=== PATIENT | female | born 1995 | race Caucasian/White ===

== ENCOUNTER 2019-11-16 12:54 | Emergency (ER) | payer OTHER, SELFPAY ==
--- NOTE | ~2019-11-16 | XR_ITS ---
XR foot LT min 3V DATE: 11/16/2019 13:14 INDICATION: Struck foot on height chair. Pain and bruising of fifth metatarsal and toe TECHNIQUE: 4 views COMPARISON: None FINDINGS: There is a linear oblique fracture of the shaft of the proximal phalanx of the fifth toe wi th up to 1.2 mm medial displacement, minimal apex medial angulation. No other fracture or dislocation, periosteal reaction or bone destruction. IMPRESSION: Up to 1.2 mm medially displaced fracture of the proximal phalanx of the fifth digit Reviewed, dictated and finalized at location B.
[2019-11-16 13:03] VITALS: BP 143/62; PULSE 87; RESP 20; TEMP 36.2; O2SAT 100
--- NOTE | 2019-11-16 13:13 | ED.LOWEXIN ---
HPI - Extremity Injury (Lower) General Chief Complaint: Extremity Injury, Lower Stated Complaint: INJURED TOE Time Seen by Provider: 11/16/19 13:09 Source: patient and RN notes reviewed History of Present Illness HPI Narrative: Patient is a 24-year-old female who presents the urgent care with complaints of left foot pain and bruising. Patient states that she ran her foot into a highchair Friday while at home. States that she has been elevating the foot and using ice. 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 Patient has not used anything [id number] for her pain. No other acute complaints. No acute distress noted. Patient aware of the plan of care. Related Data Home Medications Medication Instructions Recorded Confirmed No Home Medications 11/16/19 11/16/19 Allergies Allergy/AdvReac Type Severity Reaction Status Date / Time No Known Allergies Allergy Verified 11/16/19 12:56 Review of Systems Review of Systems: Narrative: CONSTITUTIONAL: Denies fever, chills, or sweats. EYES: Denies visual changes, redness, or discharge. ENT: Denies rhinorrhea, congestion, sore throat, or otalgia. CARDIOVASCULAR: Denies chest pain, palpitations, or edema. RESPIRATORY: Denies cough or dyspnea. GASTROINTESTINAL: Denies abdominal pain, nausea, vomiting, or diarrhea. GENITOURINARY: Denies dysuria or hematuria. SKIN: Denies rash or itching. MUSCULOSKELETAL: Reports of left foot pain with bruising and swelling NEUROLOGIC: Denies headache, numbness, or weakness. All other systems reviewed are negative, except as documented in HPI. [facility] Family History Family History (Updated 03/31/19 @ 12:23 by Kandace Brown RN) Other Unknown family medical history Social History Social History Smoking status: Never smoker Second hand tobacco smoke exposure: No Gender identity (if verbalized by the patient): Female Spiritual care concerns: No Comments At the time of my signature, I reviewed and agree with the nursing past medical, surgical, social, and family history. There is no relevant family history pertinent to the patient complaint. Exam Narrative: Exam Narrative: GENERAL: This is a well-nourished, well-developed patient, in no apparent distress. HEAD: normocephalic, atraumatic. EYES: PERRL. Sclera clear/white. Vision is grossly intact. EARS: External ears normal NOSE: External nose normal with no obvious nasal discharge, nares without redness, no rhinorrhea. THROAT: Mucous membranes moist NECK: Neck supple SKIN: warm, intact with no suspicious lesions or rash, good texture and turgor. NEURO: awake, alert, and oriented to person, place and time. There were no obvious focal neurologic abnormalities. EXTREMITIES: Moderate ecchymosis noted to the lateral aspect of the left foot, more notable to the fifth digit with tenderness. Positive strong left pedal pulse with capillary refill less than 2 seconds. Course Vital Signs Vital signs: Vital Signs Temperature 97.2 F L 11/16/19 13:03 Pulse Rate 87 11/16/19 13:03 Respiratory Rate 20 11/16/19 13:03 Blood Pressure 143/62 H 11/16/19 13:03 Pulse Oximetry 100 11/16/19 13:03 Temperature 97.2 F L 11/16/19 13:03 Pulse Rate 87 11/16/19 13:03 Respiratory Rate 20 11/16/19 13:03 Blood Pressure 143/62 H 11/16/19 13:03 Pulse Oximetry 100 11/16/19 13:03 Reviewed?patient is informed that they may have pre-hypertension or hypertension based on a blood pressure reading in the department. I recommend the patient call the primary care provider listed on their discharge instructions or a physician of their choice this week to arrange follow-up for further evaluation of possible pre-hypertension or hypertension. MDM - Extremity Injury (Lower) MDM Narrative Medical decision making narrative: Reviewed x-ray results with the patient. She is aware the x-ray shows displaced fracture of the
== END 2019-11-16 13:39 | disposition home or self-care (01) ==
PROVIDERS: Emergency Provider Nurse Practitioner Family
DX: S92.502A Displaced unspecified fracture of left lesser toe(s), initial encounter for closed fracture (principal); W22.03XA Walked into furniture, initial encounter; Y92.009 Unspecified place in unspecified non-institutional (private) residence as the place of occurrence of the external cause
CPT/HCPCS: 73630; 99214; G0463

== ENCOUNTER 2022-07-26 05:42 | Observation (INO) | payer OTHER, SELFPAY ==
[2022-07-26] VITALS (9 sets, daily range): BP systolic 115–131; BP diastolic 72–80; PULSE 74–85; BMI 37.0
--- NOTE | 2022-07-26 06:44 | LDADM ---
This patient, Lorena Basilio, was admitted to [facility] on 07/26/22 at 05:42. Plans for labor, pain management and were discussed with patient. Patient/family oriented to hospital policies and general routines including ID bracelet, bed and alarms, visiting hours, pain management, procedures, bathroom and other care routines, personal items, smoking policy, room service/diet and guest tray routines, security routines, and visiting hours. Patient/Family are encouraged to report perceived risks to care and to ask questions if they do not understand what they are told or what they should do. See OBIX for further documentation.
[2022-07-26 07:32] LABS: Appearance Urine Clear (Clear); Bacteria Urine 1+ /hpf; Bilirubin Urine Negative (Negative); Blood Urine 3+ (Negative); Color Urine Yellow (Yellow); Glucose Urine UA Negative (Negative); Ketones Urine Negative (Negative); Leukocyte Esterase Ur 3+ LEU/UL (Negative); Nitrate Urine Negative (Negative); Non Pathogenic Casts 0-2; Protein Urine Negative (Negative); RBC Urine 0-2 /hpf (0-2); Specific Grav Ur 1.007 (1.001-1.035); Squamous Epithelial Cell Urine Occasional /hpf (Few); Urobilinogen Urine 0.2 mg/dL (<2.0); WBC Urine 51-100 /hpf
[2022-07-26 07:41] LABS: Add Urine Microscopic? YES
--- NOTE | 2022-07-26 07:51 | PC.NURSE ---
Patient admitted with complaints of intermittent lower back and abdominal cramping that she rates a 4/10 on the pain scale. UA sent and patient placed on monitors. Category I tracing noted with occasional contractions. Spoke with Laura Patrick CNM on unit. CNM reviewed tracing and labs. Orders placed for 1gm IV Rocephin, 1L LR, 1gm PO Tylenol, and a dose of IM betamethasone. Patient to be discharged after treatment with prescription for 100 mg Macrobid [id number]. Patient verbalizes understanding and has no questions at this time.
[2022-07-26] MEDS: LACTATED RINGERS 1,000 ML 999 ML IV CONT (08:35)
[2022-07-26] MEDS: ACETAMINOPHEN 500 MG TABLET 1000 MG PO (08:44)
[2022-07-26] MEDS: BETAMETHASONE SOD PHOS/ACETATE 30 MG/5 ML VIAL 12 MG IM (09:04)
--- NOTE | 2022-07-29 15:30 | P.PNOB_ITS ---
OB - Triage/Final Diagnosis Visit Information Date of evaluation: 07/26/22 Reason for evaluation: threatened labor Comments/Additional reasons for admission: I have assessed the risk for this patient, Lorena Wellington Basilio, and determined that she would benefit from observation care. Evaluation Laboratory results: Laboratory Tests 07/26/22 06:21 Urine Color Yellow Urine Appearance Clear Urine pH 7.0 Ur Specific [place] 1.007 Urine Protein Negative Urine Glucose (UA) Negative Urine Ketones Negative Ur Blood (Man) 3+ H Urine Nitrate Negative Urine Bilirubin Negative Urine Urobilinogen 0.2 Leukocyte Esterase Rfl 3+ H Urine RBC 0-2 Urine WBC 51-100 H Ur Squamous Epith Cells Occasional Urine Bacteria 1+ H Urine Casts 0-2
== END 2022-07-26 10:02 | disposition home or self-care (01) ==
PROVIDERS: Advanced Practice Midwife; Admitting Provider Obstetrics & Gynecology; Visit Provider Obstetrics & Gynecology
DX: O47.03 False labor before 37 completed weeks of gestation, third trimester (principal); O26.893 Other specified pregnancy related conditions, third trimester; R10.9 Unspecified abdominal pain; Z3A.35 35 weeks gestation of pregnancy
CPT/HCPCS: 81001; 87077; 87086; 87088; 87186; 96361; 96365; A9270; G0378; G0379; J0696; J0702; J7120

== ENCOUNTER 2022-07-27 08:54 | Outpatient (CLI) | payer OTHER, SELFPAY ==
[2022-07-27] MEDS: BETAMETHASONE SOD PHOS/ACETATE 30 MG/5 ML VIAL 12 MG IM (09:11)
== END 2022-07-27 09:12 | disposition home or self-care (01) ==
LOC: ANHOBOP 09:01 → ANHLDR 09:01
PROVIDERS: Visit Provider Obstetrics & Gynecology
DX: Z36.84 Encounter for antenatal screening for fetal lung maturity (principal)
CPT/HCPCS: 96372; 99199; J0702

== ENCOUNTER 2022-08-07 21:40 | Observation (INO) | payer OTHER, SELFPAY ==
[2022-08-07 22:01] VITALS: BP 127/75; PULSE 84
--- NOTE | 2022-08-07 22:13 | OBADM ---
This patient, Lorena Basilio, admitted to the OB room [facility] for observation. Patient/family oriented to hospital policies and general routines including ID bracelet, bed and alarms, visiting hours, pain management, procedures, bathroom and other care routines, personal items, smoking policy, room service/diet, and visiting hours. Patient/Family are encouraged to report perceived risks to care and to ask questions if they do not understand what they are told or what they should do.
[2022-08-07 22:31] VITALS: BP 122/75; PULSE 81
[2022-08-07 22:51] VITALS: BMI 37.5
[2022-08-07 22:58] LABS: Hematocrit 29.1 % (37.0-47.0); Hemoglobin 9.4 g/dL (12.0-15.0); Mean Corpuscular HGB Conc 32.3 g/dl (32-36); Mean Corpuscular Hemoglobin 27.6 pg (26-34); Mean Corpuscular Volume 85.6 fl (80-100); Mean Platelet Volume 11.4 fl (7.4-10.4); Platelet Count Result 171 k/mm3 (150-375); Red Cell Distribution Width 15.3 % (11.5-14.5); White Blood Count 10.8 K/mm3 (4.5-10.0)
[2022-08-07 23:13] LABS: Appearance Urine Clear (Clear); Bacteria Urine Rare /hpf; Bilirubin Urine Negative (Negative); Blood Urine Negative (Negative); Color Urine Yellow (Yellow); Glucose Urine UA Negative (Negative); Ketones Urine Negative (Negative); Leukocyte Esterase Ur Trace LEU/UL (Negative); Nitrate Urine Negative (Negative); Non Pathogenic Casts 0-2; Protein Urine Negative (Negative); RBC Urine 0-2 /hpf (0-2); Specific Grav Ur 1.022 (1.001-1.035); Squamous Epithelial Cell Urine Few /hpf (Few); Urobilinogen Urine 0.2 mg/dL (<2.0)
[2022-08-07 23:57] LABS: Add Urine Microscopic? YES
--- NOTE | 2022-08-09 17:52 | PM.OBTRLD ---
OB - Triage/Final Diagnosis Visit Information Date of evaluation: 08/07/22 Reason for evaluation: threatened labor Comments/Additional reasons for admission: I have assessed the risk for this patient, Lorena Paris Praful, and determined that she would benefit from observation care. Evaluation Laboratory results: Laboratory Tests 08/07/22 22:43 WBC 10.8 H RBC 3.40 L Hgb 9.4 L Hct 29.1 L MCV 85.6 MCH 27.6 MCHC 32.3 RDW 15.3 H Plt Count 171 MPV 11.4 H Urine Color Yellow Urine Appearance Clear Urine pH 6.0 Ur Specific [place] 1.022 Urine Protein Negative Urine Glucose (UA) Negative Urine Ketones Negative Ur Blood (Man) Negative Urine Nitrate Negative Urine Bilirubin Negative Urine Urobilinogen 0.2 Leukocyte Esterase Rfl Trace H Urine RBC 0-2 Urine WBC 6-10 H Ur Squamous Epith Cells Few Urine Bacteria Rare Urine Casts 0-2
== END 2022-08-08 00:13 | disposition home or self-care (01) ==
PROVIDERS: Advanced Practice Midwife; Admitting Provider Obstetrics & Gynecology; Visit Provider Obstetrics & Gynecology
DX: O47.1 False labor at or after 37 completed weeks of gestation (principal); O26.893 Other specified pregnancy related conditions, third trimester; R10.9 Unspecified abdominal pain; Z3A.37 37 weeks gestation of pregnancy
CPT/HCPCS: 36415; 81001; 85027; 87086; 87088; G0378; G0379